=== PATIENT | male | born 1975 | race Caucasian/White ===

== ENCOUNTER 2021-12-04 15:27 | Outpatient (CLI) | payer OTHER ==
[2021-12-04 17:04] LABS: #Basophils 0.1 10x3/uL (0.0-0.2); #Eosinphils 0.1 10x3/uL (0.0-0.5); #Monocytes 0.8 10x3/uL (0.0-1.1); #Neutrophils 5.1 10x3/uL (1.5-8.4); %Basophils 0.7 % (0.0-2.0); %Lymphocytes 26.1 % (18.0-47.0); %Monocytes 9.7 % (0.0-10.0); %Neutrophils 62.3 % (40.0-75.0); Hemoglobin 16.6 g/dL (13.5-17.5); Mean Corpuscular HGB CONC 34.2 g/dL (32.0-36.0); Mean Corpuscular Hemoglobin 31.8 pg (27.0-33.0); Mean Corpuscular Volume 92.9 fl (81.2-95.1); Mean Platelet Volume 10.1 fl (7.4-10.4); Platelet Count 350 10x3/uL (150-450); RBC Distribution Width 12.7 % (11.5-14.5); Red Blood Cell (RBC) Count 5.22 10x6/uL (4.32-5.72); White Blood Cell (WBC) Count 8.1 10x3/uL (3.5-10.5)
[2021-12-04 17:24] LABS: Anion Gap 16 mmol/L (10-20); BUN (Urea Nitrogen) 14 mg/dL (8.9-20.6); Calc. Creatinine Clearance 0 mL/min (70-130); Calcium 9.3 mg/dL (7.8-10.44); Carbon Dioxide 23 mmol/L (22-29); Chloride 104 mmol/L (98-107); Glucose 79 mg/dL (70-105); Potassium 4.1 mmol/L (3.5-5.1); Sodium 139 mmol/L (136-145)
[2021-12-04 17:25] LABS: Prothrombin Time 10.8 sec (9.5-12.1)
[2021-12-05 14:38] LABS: SARS-CoV-2 PCR by NAA Not Detected (NotDetected)
== END 2021-12-04 15:28 | disposition home or self-care (01) ==
LOC: LABBT 15:27
PROVIDERS: ATTEND Orthopaedic Surgery
DX: Z01.818 Encounter for other preprocedural examination (principal); M16.11 Unilateral primary osteoarthritis, right hip; Z20.822 Contact with and (suspected) exposure to COVID-19
CPT/HCPCS: 80048; 85025; 85610; 87081; 93005; 93010; U0003; U0005

== ENCOUNTER 2021-12-09 05:26 | Inpatient (IN) | payer OTHER ==
[2021-12-03 14:06] VITALS: BMI 34.4
[2021-12-09] MEDS ORDERED: Tranexamic Acid 1,000 MG/10 ML VIAL ONE (05:52)
[2021-12-09] MEDS ORDERED: ceFAZolin 2 GM/DEX 5% 100 ML BAG ONE (05:52)
[2021-12-09] MEDS ORDERED: Sodium Chloride 0.9% 100 ML ONE (05:52)
[2021-12-09] MEDS ORDERED: Fentanyl 100 MCG/2 ML VIAL ONE ×3 (06:43→15:07)
[2021-12-09] MEDS ORDERED: Midazolam HCl 2 mg/2 ml Vial ONE ×2 (06:45→07:31)
[2021-12-09] MEDS ORDERED: Bupivacaine PF 0.5% 30 ML VIAL ONE (06:49)
[2021-12-09] MEDS ORDERED: VANCOMYCIN 2 GRAM/400 ML BAG 2 GM in Premix Bag 1 BAG IVPB SCH (07:00)
[2021-12-09] MEDS ORDERED: PROPOFOL 200 MG/20 ML VIAL ONE (07:11)
[2021-12-09] MEDS ORDERED: ePHEDrine 50 MG/ML VIAL ONE (07:11)
[2021-12-09] MEDS ORDERED: Bupivacaine HCl 0.5%/Epinephrine 1:200,000/PF 30 ml Vial ONE (07:11)
[2021-12-09] MEDS ORDERED: HYDROcodone/Acetaminophen 5/325 mg Tablet ONE (12:36)
[2021-12-09] MEDS ORDERED: Morphine 4 MG/ML VIAL ONE (13:59)
[2021-12-09] MEDS ORDERED: diphenhydrAMINE 25 MG CAP PO PRN (14:29)
[2021-12-09] MEDS ORDERED: Fentanyl 100 MCG/2 ML VIAL SLOW IVP PRN (14:29)
[2021-12-09] MEDS ORDERED: Promethazine HCl 25 MG/ML VIAL IM PRN (14:29)
[2021-12-09] MEDS ORDERED: Zolpidem Tartrate 5 MG TAB PO PRN (14:29)
[2021-12-09] MEDS ORDERED: Ondansetron PF 4 MG/2 ML Vial IVP PRN (14:29)
[2021-12-09] MEDS ORDERED: Acetaminophen 325 MG TAB PO PRN (14:29)
[2021-12-09] MEDS ORDERED: HYDROcodone/Acetaminophen 10/325 mg Tablet PO PRN ×2 (14:29)
[2021-12-09] MEDS ORDERED: HYDROcodone/Acetaminophen 10/325 mg Tablet ONE (14:40)
[2021-12-09] MEDS: ceFAZolin Sodium/D5W 2 GM in Premix Bag 1 BAG IVPB SCH (18:16)
[2021-12-09] MEDS: Sodium Chloride 0.9% 1,000 ML IV SCH (18:22)
[2021-12-09] MEDS: Aspirin 81 mg Enteric Coated Tablet PO SCH (20:13)
[2021-12-09] MEDS: Ketorolac Tromethamine 30 MG/ML VIAL IVP SCH (22:16)
[2021-12-10] MEDS: Sodium Chloride 0.9% 1,000 ML IV SCH ×2 (00:30→10:31)
[2021-12-10] MEDS: ceFAZolin Sodium/D5W 2 GM in Premix Bag 1 BAG IVPB SCH (01:47)
[2021-12-10 05:08] LABS: Hemoglobin 13.8 g/dL (14.0-18.0); Mean Corpuscular HGB CONC 35.2 g/dL (32.0-36.0); Mean Corpuscular Hemoglobin 33.7 pg (27.0-31.0); Mean Corpuscular Volume 95.7 fL (78.0-98.0); Mean Platelet Volume 7.1 fL (7.4-10.4); Platelet Count 261 thou/uL (130-400); RBC Distribution Width 11.7 % (11.5-14.5); Red Blood Cell (RBC) Count 4.09 mill/uL (4.70-6.10); White Blood Cell (WBC) Count 9.3 thou/uL (4.8-10.8)
[2021-12-10] MEDS: Ketorolac Tromethamine 30 MG/ML VIAL IVP SCH (06:06)
[2021-12-10] MEDS ORDERED: Senokot S 8.6-50 MG TAB PO SCH (09:00)
[2021-12-10] MEDS ORDERED: Ferrous Gluconate 324 MG TAB PO SCH (09:00)
[2021-12-10] MEDS ORDERED: Multivitamin W/ Minerals 1 TAB PO SCH (09:00)
[2021-12-10] MEDS: Aspirin 81 mg Enteric Coated Tablet PO SCH (10:57)
[2021-12-10 12:11] VITALS: TEMP 97.9
[2021-12-10 13:02] VITALS: BP 119/87
== END 2021-12-10 12:43 | disposition home or self-care (01) | DRG 470 ==
LOC: SDC 05:26 → SURG A 14:31
PROVIDERS: ADMIT Orthopaedic Surgery; ATTEND Orthopaedic Surgery
PROC: 0SR9019 Replacement of Right Hip Joint with Metal Synthetic Substitute, Cemented, Open Approach (ICD-10-PCS; principal; 2021-12-09)
DX: M16.11 Unilateral primary osteoarthritis, right hip (principal); Z79.82 Long term (current) use of aspirin
CPT/HCPCS: 36415; 85027; C1713; C1776; J1885; J2250; J2270; J2704; J3010; J3370; J3490; S0020

== ENCOUNTER 2022-04-09 16:30 | Outpatient (CLI) | payer OTHER | END 2022-04-09 16:31 | disposition home or self-care (01) | LOC: SLEEPLAB 16:30 | PROVIDERS: ATTEND Family Medicine | DX: G47.33 Obstructive sleep apnea (adult) (pediatric) (principal); R06.83 Snoring; E66.9 Obesity, unspecified; Z68.36 Body mass index [BMI] 36.0-36.9, adult | CPT/HCPCS: 95800 ==